=== PATIENT | male | born 1960 | race Caucasian/White ===

== ENCOUNTER 2017-03-16 18:00 | Emergency (ER) | payer OTHER ==
[~2017-03-16] VITALS: Ht 185.4 cm
[~2017-03-16 18:00] MED LIST: AMITIZA24 MICROGR PO; AMLODIPINE BESYL5 MG PO; ANTI DEPRESSANT; CELECOXIB200 MG PO; CITALOPRAM HBR20 MG PO; DOCUSATE SODIU100 MG PO; ELAVIL25 MG PO; Elavil PO; FAMOTIDINE20 MG PO; FENTANYL1 EAC1 TD; KADIAN10 MG PO; Keppra PO; MAGNESIUM400 M1 PO; MIRTAZAPINE15 MG PO; MOTRIN800 MG PO; MS Contin,Oramorph S PO; MULTIPLE VITAM1 EACH PO; NABUMETONE PO; NABUMETONE750 MG PO; OMEGA-31000 M1 PO; PERCOCET 7.51 TABLET PO; PRAVASTATIN SOD40 MG PO; PROBIOTIC1 EAC2 PO; RELAFEN750 MG PO; ROXICODONE5 MG PO; Relafen PO; THIAMINE HCL100 MG PO; TIZANIDINE HCL4 M1 PO; TRAMADOL HCL50 MG PO; VALIUM5 MG PO; VALSARTAN320 MG PO; Valium PO; ZOFRAN4 MG PO; ZOLPIDEM TARTRAT5 MG PO; oxyCODONE PO
[2017-03-16] MEDS ORDERED: CLONIDINE HCL0.1 MG PO (18:23)
[2017-03-16 23:17] VITALS: BP 108/77
== END 2017-03-16 23:18 | disposition home or self-care (01) ==
LOC: EME 18:00
DX: F10.129 Alcohol abuse with intoxication, unspecified (principal); F11.23 Opioid dependence with withdrawal; R41.82 Altered mental status, unspecified; R53.1 Weakness; I10 Essential (primary) hypertension; F17.200 Nicotine dependence, unspecified, uncomplicated; K21.9 Gastro-esophageal reflux disease without esophagitis; R56.9 Unspecified convulsions; Z88.8 Allergy status to other drugs, medicaments and biological substances
CPT/HCPCS: 99281; 99284

== ENCOUNTER 2017-03-27 07:12 | Emergency (ER) | payer OTHER ==
[~2017-03-27] VITALS: Ht 185.4 cm; Wt 81.8 kg
[~2017-03-27 07:12] MED LIST changes: +CLONIDINE HCL0.1 MG PO
[2017-03-27 07:58] LABS: BASOPHIL (%) 0.4 % (0-1); EOSINOPHIL (%) 0 % (0-5); HEMATOCRIT 43.8 % (38.0-50.0); HEMOGLOBIN 15.3 G/DL (12.5-16.6); IMMATURE GRANULOCYTE (%) 0.4 % (0.0-0.7); LYMPHOCYTE (%) 29.7 % (15-42); LYMPHOCYTE COUNT 1.5 K/uL (1.0-2.8); MCH 28.8 PG (29.0-34.0); MCHC 34.9 G/DL (30.0-36.0); MCV 82.3 FL (86-99); MONOCYTE (%) 10.1 % (3-12); MONOCYTE COUNT 0.5 K/uL (0-0.8); NEUTROPHIL (%) 59.4 % (45-76); NEUTROPHIL COUNT 3.1 K/uL (1.8-6.4); PLATELET COUNT 112 K/uL (156-360); RBC DIS.WIDTH-CV 13.9 % (11.8-14.6); RED BLOOD COUNT 5.32 M/uL (4.00-5.50); WHITE BLOOD COUNT 5.2 K/uL (4.1-10.2)
[2017-03-27 08:07] LABS: CHLORIDE 97 mEq/L (99-109); POTASSIUM 3.2 mEq/L (3.7-5.4); SODIUM 138 mEq/L (136-147)
[2017-03-27 08:09] LABS: GLUCOSE 87 mg/dL (70-99)
[2017-03-27 08:10] LABS: APPEARANCE CLEAR ((CLEAR)); BILIRUBIN NEGATIVE; BLOOD SMALL; COLOR YELLOW ((YELLOW)); GLUCOSE (STRIP) NEGATIVE; KETONES 80; LEUKOCYTES NEGATIVE; NITRITE NEGATIVE; PROTEIN (STRIP) 30; SPECIFIC GRAVITY 1.012 (1.000-1.030)
[2017-03-27 08:12] LABS: SERUM ETHYL ALCOHOL 295 mg/dL
[2017-03-27 08:12] LABS: BACTERIA RARE /HPF; EPITHELIAL CELLS NONE SEEN /HPF; HYALINE CASTS 0-5 /LPF; MUCUS TRACE /LPF; RED BLOOD CELLS 0-5 /HPF (0-5); WHITE BLOOD CELLS 0-5 /HPF (0-5)
[2017-03-27 08:13] LABS: CREATININE 0.7 mg/dL (0.6-1.3); GFR ESTIMATE (CALCULATED) > 59 mL/min/ (58.99-99999)
[2017-03-27 08:14] LABS: UREA NITROGEN (BUN) 10 mg/dL (9-23)
[2017-03-27 08:28] LABS: AMPHETAMINE NEGATIVE (500 ng/mL); BARBITURATES NEGATIVE (200 ng/mL); BENZODIAZEPINES PRESUMPTIVE POSITIVE (150 ng/mL); BUPRENORPHINE NEGATIVE (10 ng/mL); COCAINE NEGATIVE (150 ng/mL); METHADONE PRESUMPTIVE POSITIVE (200 ng/mL); METHAMPHETAMINE NEGATIVE (500 ng/mL); OPIATES (MORPHINE) NEGATIVE (100 ng/mL); OXYCODONE NEGATIVE (100 ng/mL); PHENCYCLIDINE NEGATIVE (25 ng/mL); PROPOXYPHENE NEGATIVE (300 ng/mL); THC CANNABINOIDS NEGATIVE (50 ng/mL); TRICYCLIC ANTIDEPRESSANTS NEGATIVE (300 ng/mL)
[2017-03-27 09:05] LABS: BENZODIAZEPINES, URINE SCREEN POSITIVE (200 ng/mL)
[2017-03-27 09:17] VITALS: BP 139/88
== END 2017-03-27 09:18 | disposition home or self-care (01) ==
LOC: EME 07:12
PROVIDERS: Emergency Medicine
DX: F10.129 Alcohol abuse with intoxication, unspecified (principal); Y90.8 Blood alcohol level of 240 mg/100 ml or more; I10 Essential (primary) hypertension; K21.9 Gastro-esophageal reflux disease without esophagitis; Z72.0 Tobacco use; Z88.8 Allergy status to other drugs, medicaments and biological substances
CPT/HCPCS: 80048; 81003; 84999; 85025; 99281; 99284; G0480

== ENCOUNTER 2017-07-01 19:25 | Emergency (ER) | payer OTHER ==
[~2017-07-01] VITALS: Ht 182.9 cm; Wt 100.0 kg
[2017-07-01 21:39] VITALS: BP 162/97
== END 2017-07-01 21:41 ==
LOC: EME 19:25
DX: S09.90XA Unspecified injury of head, initial encounter (principal); W18.30XA Fall on same level, unspecified, initial encounter; F10.129 Alcohol abuse with intoxication, unspecified; Y90.8 Blood alcohol level of 240 mg/100 ml or more; G89.29 Other chronic pain; M54.9 Dorsalgia, unspecified; Z88.8 Allergy status to other drugs, medicaments and biological substances
CPT/HCPCS: 70450; 72125; 99281; 99282; G0480

== ENCOUNTER 2017-07-15 10:46 | Emergency (ER) | payer OTHER ==
[~2017-07-15] VITALS: Ht 170.2 cm; Wt 88.1 kg
[2017-07-15 11:45] LABS: HEMATOCRIT 45.9 % (38.0-50.0); HEMOGLOBIN 15.9 G/DL (12.5-16.6); MCH 30.5 PG (29.0-34.0); MCHC 34.6 G/DL (30.0-36.0); MCV 88.1 FL (86-99); PLATELET COUNT 133 K/uL (156-360); RBC DIS.WIDTH-CV 12.5 % (11.8-14.6); RBC DIS.WIDTH-SD 40.2 % (39-53); RED BLOOD COUNT 5.21 M/uL (4.00-5.50); WHITE BLOOD COUNT 5.5 K/uL (4.1-10.2)
[2017-07-15 11:55] LABS: ALBUMIN 4.2 g/dL (3.2-4.8); CHLORIDE 102 mEq/L (99-109); SODIUM 140 mEq/L (136-147)
[2017-07-15 11:57] LABS: GLUCOSE 96 mg/dL (70-99); TOTAL PROTEIN 7.2 g/dL (6.4-8.3)
[2017-07-15 11:59] LABS: TOTAL BILIRUBIN 0.8 mg/dL (0.0-1.0)
[2017-07-15 12:00] LABS: SERUM ETHYL ALCOHOL 398 mg/dL
[2017-07-15 12:01] LABS: ALKALINE PHOSPHATASE 136 IU/L (3-129); GFR ESTIMATE (CALCULATED) > 59 mL/min/ (58.99-99999)
[2017-07-15 12:02] LABS: UREA NITROGEN (BUN) 4 mg/dL (9-23)
[2017-07-15 12:03] LABS: AST (GOT) 117 IU/L (2-34)
[2017-07-15 12:04] LABS: ALT (GPT) 99 IU/L (3-49)
[2017-07-15 20:36] VITALS: BP 110/77
== END 2017-07-15 20:37 | disposition home or self-care (01) ==
LOC: EME 10:46
PROVIDERS: Family Medicine
DX: S22.31XA Fracture of one rib, right side, initial encounter for closed fracture (principal); V47.5XXA Car driver injured in collision with fixed or stationary object in traffic accident, initial encounter; Y92.410 Unspecified street and highway as the place of occurrence of the external cause; F10.129 Alcohol abuse with intoxication, unspecified; Y90.8 Blood alcohol level of 240 mg/100 ml or more; I10 Essential (primary) hypertension; K21.9 Gastro-esophageal reflux disease without esophagitis; G89.29 Other chronic pain; M54.9 Dorsalgia, unspecified; R56.9 Unspecified convulsions; G43.909 Migraine, unspecified, not intractable, without status migrainosus; F17.200 Nicotine dependence, unspecified, uncomplicated; Z96.89 Presence of other specified functional implants; Z87.19 Personal history of other diseases of the digestive system; Z88.8 Allergy status to other drugs, medicaments and biological substances
CPT/HCPCS: 71111; 80053; 85027; 99281; 99284; G0480; J7040